=== PATIENT | male | born 1975 | race Caucasian/White ===

== ENCOUNTER 2017-02-20 01:09 | Emergency (ER) | payer OTHER ==
[~2017-02-20] VITALS: Ht 175.3 cm; Wt 68.0 kg
[2017-02-20 01:20] VITALS: BP 106/70
--- NOTE | 2017-02-20 01:27 | PHYS DOC ---
Adult General Chief Complaint Chief Complaint: ALCOHOL INTOXICATION HPI HPI Patient is a 41 year old male who presents to the emergency department for medical clearance. The patient was brought to the emergency department by EMS from a local bar. The patient had been drinking at the bar and did not pay his. Authorities were contacted and found the patient. Apparently the patient has additional warrants for his arrest that are active at this time. The patient is intoxicated at this time. Patient denies any other complaints except for soreness in his knees which she attributes to arthritis. Patient otherwise has no additional complaints. Patient admits that he has been "drinking heavily." Patient is an every day drinker. Review of Systems Review of Systems Constitutional: Denies fever or chills [] Eyes: Denies change in visual acuity, redness, or eye pain [] HENT: Denies nasal congestion or sore throat [] Respiratory: Denies cough or shortness of breath [] Cardiovascular: Denies chest pain or edema[] GI: Denies abdominal pain, nausea, vomiting, bloody stools or diarrhea [] : Denies dysuria or hematuria [] Musculoskeletal: Chronic bilateral knee pain[] Integument: Denies rash or skin lesions [] Neurologic: Denies headache, focal weakness or sensory changes [] Allergies Allergies Allergies Coded Allergies Type Severity Reaction Last Updated Verified Penicillins Allergy Intermediate 02/20/17 Yes Uncoded Allergies Type Severity Reaction Last Updated Verified PROCESSED MEATS Adverse Reaction Unknown 02/20/17 Physical Exam Physical Exam Constitutional: Alert, slurred speech, no acute distress. [] HENT: Normocephalic, atraumatic, bilateral external ears normal, oropharynx dry , no oral exudates, nose normal. [] Eyes: PERRLA, EOMI, conjunctiva normal, no discharge. [] Neck: Normal range of motion, no tenderness, supple, no stridor. [] Cardiovascular: Tachycardia, regular rhythm, no murmur [] Lungs & Thorax: Bilateral breath sounds clear to auscultation [] Abdomen: Bowel sounds normal, soft, no tenderness, no masses, no pulsatile masses. [] Skin: Warm, dry, no erythema, no rash. [] Back: No tenderness, no CVA tenderness. [] Extremities: No tenderness, no cyanosis, no clubbing, ROM intact, no edema. [] Neurologic: Alert and oriented X 3, normal motor function, normal sensory function, no focal deficits noted. [] Current Patient Data Vital Signs Vital Signs Date Time Temp Pulse Resp B/P (MAP) Pulse Ox O2 Delivery O2 Flow Rate FiO2 02/20/17 01:20 97.7 114 20 106/70 (82) 94 Room Air 97.7 EKG EKG Rhythm strip interpretation by me: Heart rate 108, sinus rhythm, no ectopy[] Radiology/Procedures Radiology/Procedures Not performed[] Course & Med Decision Making Course & Med Decision Making Pertinent Labs and Imaging studies reviewed. (See chart for details) Patient was provided with oral fluids in the emergency department. Patient has no other complaints. Patient was medically cleared to return into place custody. Dragon Disclaimer Dragon Disclaimer This electronic medical record was generated, in whole or in part, using a voice recognition dictation system. Departure Departure Impression: Primary Impression: Alcohol intoxication Additional Impression: Medical clearance for incarceration Disposition: HOME, SELF-CARE Condition: STABLE Patient Instructions: Alcohol Intoxication Additional Instructions: You have been medically cleared for discharge into police custody. Problem Qualifiers Primary Impression: Alcohol intoxication Complication of substance-induced condition: uncomplicated Qualified Codes: F10.920 - Alcohol use, unspecified with intoxication, uncomplicated BABAR MENON MD Feb 20, 2017 01:27
== END 2017-02-20 01:31 | disposition home or self-care (01) ==
LOC: ER 01:09
DX: Z02.89 Encounter for other administrative examinations (principal); F10.129 Alcohol abuse with intoxication, unspecified; G89.29 Other chronic pain; M17.0 Bilateral primary osteoarthritis of knee; Z88.0 Allergy status to penicillin; Z91.018 Allergy to other foods
CPT/HCPCS: 99284